=== PATIENT | female | born 1990 | race Caucasian/White ===

== ENCOUNTER 2017-07-03 22:05 | Emergency (ER) | payer OTHER ==
[2017-07-03 22:13] VITALS: BP 104/68; PULSE 90; RESP 20; TEMP 98.5
[2017-07-03] MEDS ORDERED: BUPIVACAINE (PF) 0.5% 30 ML VIAL SQ STA (22:25)
[2017-07-03] MEDS ORDERED: CLINDAMYCIN 150 MG CAP PO STA (22:26)
--- NOTE | 2017-07-03 22:53 | ED ---
ENT HPI - General Chief complaint: Dental/Oral Stated complaint: Dental pain Time Seen by Provider: 07/03/17 22:20 Source: patient, RN notes reviewed Mode of arrival: ambulatory Limitations: no limitations - History of Present Illness MD complaint: tooth pain - Related Data Previous Rx's Medication Instructions Recorded Lurasidone [Latuda] 40 mg PO DAILY #30 tab 08/01/16 buPROPion XL [Wellbutrin XL] 300 mg PO DAILY #30 tab.er.24h 08/01/16 busPIRone HCl [Buspar] 10 mg PO TID #90 tab 08/01/16 traZODone HCL [Desyrel] 50 mg PO HS PRN #30 tab 08/01/16 Acetaminophen-Codeine 300-30mg 1 each PO Q4H PRN #20 tablet 07/03/17 [Tylenol w/codeine #3] Clindamycin [Cleocin] 150 mg PO Q6H #40 capsule 07/03/17 Allergies Allergy/AdvReac Type Severity Reaction Status Date / Time sulfamethoxazole Allergy Rash/Hives Verified 07/03/17 22:13 [From Bactrim] trimethoprim [From Bactrim] Allergy Rash/Hives Verified 07/03/17 22:13 Review of Systems ROS Statement: Those systems with pertinent positive or pertinent negative responses have been documented in the HPI. ROS Other: All systems not noted in ROS Statement are negative. Past Medical History Past Medical History: No Reported History Additional Past Medical History / Comment(s): pcos History of Any Multi-Drug Resistant Organisms: None Reported Past Surgical History: No Surgical Hx Reported Past Anesthesia/Blood Transfusion Reactions: No Reported Reaction Past Psychological History: Anxiety, Depression Smoking Status: Never smoker Past Alcohol Use History: None Reported Past Drug Use History: None Reported - Past Family History Father Additional Family Medical History / Comment(s): Father is alive at age 49 with no major medical problems. Mother Family Medical History: COPD, CVA/TIA Additional Family Medical History / Comment(s): Mother is alive at age 50 with history of CVA, COPD. Sister(s) Additional Family Medical History / Comment(s): Patient has 4 sisters and 3 brothers with no major medical problems. General Exam - General Exam Comments Initial Comments: Well-developed, well-nourished 26-year-old female in minimal distress Limitations: no limitations General appearance: alert, in no apparent distress Head exam: Present: atraumatic, normocephalic, normal inspection Eye exam: Present: normal appearance, EOMI ENT exam: Present: mucous membranes moist, TM's normal bilaterally, normal external ear exam, other (Patient has erythema adjacent to tooth #29 on the right. This is consistent with early abscess. There is no pustular head. No current drainage. Airway patent. No tonsillar adenopathy or exudate.) Neck exam: Present: normal inspection. Absent: tenderness, meningismus, lymphadenopathy Respiratory exam: Present: normal lung sounds bilaterally. Absent: respiratory distress, wheezes, rales, rhonchi, stridor Cardiovascular Exam: Present: regular rate, normal rhythm, normal heart sounds. Absent: systolic murmur, diastolic murmur, rubs, gallop, clicks Neurological exam: Present: alert, oriented X3, CN II-XII intact Psychiatric exam: Present: normal affect, normal mood Skin exam: Present: warm, dry, intact, normal color. Absent: rash Course Vital Signs 07/03/17 22:12 Temperature 98.5 F Pulse Rate 90 Respiratory 20 Rate Blood Pressure 104/68 O2 Sat by Pulse 98 Oximetry Procedures - Nerve Block Consent Obtained: verbal consent Time Out Performed: No Local Anesthetic Used: Marcaine 0.5% Amount of anesthesia used: 1 Side: right Intraoral Nerve Block: inferior alveolar Procedure Successful: Yes Complications: none Patient Tolerated Procedure: well Additional Comments: Incision and drainage of dental abscess was also performed using an 18-gauge needle. However, no purulent drainage was aspirated. Patient tolerated well Medical Decision Making - Medical Decision Making Patient was counseled on signs and symptoms of worsening infection. Counseled on follow-up. Patient counseled on the importance of antibiotic regimen.Return to the ER at once if the symptoms worsen or problems or difficulties arise. - Differential Diagnosis Cellulitis versus early dental abscess Disposition Clinical Impression: Dental infection Disposition: HOME SELF-CARE Condition: Good Additional Instructions: Follow-up with the community dental clinic at [address] [place] [id number]. The phone number is [phone] (existing clients), ( new clients). The first consultation is $50 which includes x-rays. Usually costs 30% less than private dentist for subsequent visits. Return to the ER at once if the symptoms worsen or problems or difficulties arise. Prescriptions: Acetaminophen-Codeine 300-30mg [Tylenol w/codeine #3] 1 each PO Q4H PRN #20 tablet PRN Reason: Pain Clindamycin [Cleocin] 150 mg PO Q6H #40 capsule Referrals: Jennifer Roman MD [Primary Care Provider] - 1-2 days Time of Disposition: 22:56
[2017-07-03] MEDS ORDERED: Acetaminophen-Codeine 300-30mg TAB PO STA (23:19)
== END 2017-07-03 23:27 | disposition home or self-care (01) ==
LOC: EC 22:05
DX: K04.7 Periapical abscess without sinus (principal); Z88.2 Allergy status to sulfonamides
CPT/HCPCS: 41800; 81025; 99283

== ENCOUNTER 2017-11-25 14:42 | Emergency (ER) | payer OTHER ==
[2017-11-25 14:45] VITALS: BP 102/64; PULSE 78; RESP 18; TEMP 97.7
--- NOTE | 2017-11-25 15:06 | ED ---
General Adult HPI - General Chief complaint: Dental/Oral Stated complaint: dental pain Time Seen by Provider: 11/25/17 14:46 Source: patient, RN notes reviewed Mode of arrival: ambulatory Limitations: no limitations - History of Present Illness Initial comments: 26 yo female presents to the ER with cc of left sided dental pain. Patient states that this pain developed over the last 2 days or so. She has a history of bad teeth she states she called the dental clinic but they're unable. Patient denies any difficulty opening closing mouth or any pain radiating to neck patient has any fever chills. She states she did not take anything for pain prior to arrival. She states that she now some swelling to the left side the face. Patient denies any other symptoms at this time. They're concerned due to the continued pains without that should be evaluated. Patient denies any recent fever, chills, shortness of breath, chest pain, back pain, abdominal pain , nausea vomiting, numbness or tingling, dysuria or hematuria, constipation or diarrhea, headaches or visual changes, or any other current symptoms. - Related Data Previous Rx's Medication Instructions Recorded Lurasidone [Latuda] 40 mg PO DAILY #30 tab 08/01/16 buPROPion XL [Wellbutrin XL] 300 mg PO DAILY #30 tab.er.24h 08/01/16 busPIRone HCl [Buspar] 10 mg PO TID #90 tab 08/01/16 traZODone HCL [Desyrel] 50 mg PO HS PRN #30 tab 08/01/16 Acetaminophen-Codeine 300-30mg 1 each PO Q4H PRN #20 tablet 07/03/17 [Tylenol w/codeine #3] Clindamycin [Cleocin] 150 mg PO Q6H #40 capsule 07/03/17 Ibuprofen [Motrin] 800 mg PO Q6H #20 tab 11/25/17 Penicillin V Potassium [Pen Vee K] 500 mg PO QID 7 Days tablet 11/25/17 Allergies Allergy/AdvReac Type Severity Reaction Status Date / Time sulfamethoxazole Allergy Rash/Hives Verified 11/25/17 14:45 [From Bactrim] trimethoprim [From Bactrim] Allergy Rash/Hives Verified 11/25/17 14:45 Review of Systems ROS Statement: Those systems with pertinent positive or pertinent negative responses have been documented in the HPI. ROS Other: All systems not noted in ROS Statement are negative. Past Medical History Past Medical History: No Reported History Additional Past Medical History / Comment(s): pcos History of Any Multi-Drug Resistant Organisms: None Reported Past Surgical History: No Surgical Hx Reported Past Anesthesia/Blood Transfusion Reactions: No Reported Reaction Past Psychological History: Anxiety, Depression Smoking Status: Never smoker Past Alcohol Use History: None Reported Past Drug Use History: None Reported - Past Family History Father Additional Family Medical History / Comment(s): Father is alive at age 49 with no major medical problems. Mother Family Medical History: COPD, CVA/TIA Additional Family Medical History / Comment(s): Mother is alive at age 50 with history of CVA, COPD. Sister(s) Additional Family Medical History / Comment(s): Patient has 4 sisters and 3 brothers with no major medical problems. General Exam Limitations: no limitations Head exam: Present: atraumatic, normocephalic, normal inspection Eye exam: Present: normal appearance, PERRL, EOMI. Absent: scleral icterus, conjunctival injection, periorbital swelling ENT exam: Present: mucous membranes moist, other (Dental carrier Tooth #17. No abscess noted.) Neck exam: Present: normal inspection. Absent: tenderness, meningismus, lymphadenopathy Respiratory exam: Present: normal lung sounds bilaterally. Absent: respiratory distress, wheezes, rales, rhonchi, stridor Cardiovascular Exam: Present: regular rate, normal rhythm, normal heart sounds. Absent: systolic murmur, diastolic murmur, rubs, gallop, clicks Neurological exam: Present: alert, oriented X3 Psychiatric exam: Present: normal affect, normal mood Skin exam: Present: warm, dry, intact, normal color. Absent: rash Course Vital Signs 11/25/17 14:43 Temperature 97.7 F Pulse Rate 78 Respiratory 18 Rate Blood Pressure 102/64 O2 Sat by Pulse 98 Oximetry Medical Decision Making - Medical Decision Making 26 shows female presents for left-sided dental pain. This time we discussed follow-up with the dentist. We did discuss using the amount of pain medication as prescribed. We discussed return parameters all questions. Patient stated they agree with management this plan. All questions have been answered. They will be discharged home. Disposition Clinical Impression: Dental caries Disposition: HOME SELF-CARE Condition: Stable Instructions: Dental Caries (ED) Additional Instructions: Please use medication as discussed. Please follow up with family doctor if symptoms have not improved over the next two days. Please return to the emergency room if your symptoms increase or worsen or for any other concerns. [facility] [address] [place] [address] [phone] (existing clients only) For new clients: [phone] 1st consult: $50 (includes Xrays) Usually 30% less then private dentist for visits after. [employer] [facility] [employer] Have to pay $50 for Xrays anmd rest is covered. [phone] Prescriptions: Ibuprofen [Motrin] 800 mg PO Q6H #20 tab Penicillin V Potassium [Pen Vee K] 500 mg PO QID 7 Days tablet Referrals: Jennifer Roman MD [Primary Care Provider] - 1-2 days Time of Disposition: 15:06
== END 2017-11-25 15:12 | disposition home or self-care (01) ==
LOC: EC 14:42
DX: K02.9 Dental caries, unspecified (principal); Z88.2 Allergy status to sulfonamides
CPT/HCPCS: 99282

== ENCOUNTER 2018-04-30 13:01 | Emergency (ER) | payer OTHER ==
[2018-04-30 13:09] VITALS: RESP 18
[2018-04-30] MEDS ORDERED: SODIUM CHLORIDE 0.9% 500 ML IV ONE (14:35)
--- NOTE | 2018-04-30 14:37 | ED ---
General Adult HPI - General Chief complaint: Vaginal Bleeding Stated complaint: HEAVY BLEEDING Time Seen by Provider: 04/30/18 13:05 Source: patient, RN notes reviewed Mode of arrival: ambulatory Limitations: no limitations - History of Present Illness Initial comments: This is a 27-year-old female presents emergency Department complaining of vaginal bleeding. Patient states started today. Patient states it's extremely heavy. Patient states she has had heavy menstrual cycles in the past but this is more so than any other menstrual cycle she has ever had. Patient does complain of some lower abdominal cramping but no specific site of pain. Patient states she has not been sexually active because her is in [facility]. Patient denies any fever chills. Patient denies any back pain. Patient denies dysuria hematuria urinary frequency. Patient denies any shortness of breath or chest pain. Patient denies any lightheadedness or dizziness. - Related Data Home Medications Medication Instructions Recorded Confirmed ARIPiprazole [Abilify] 5 mg PO HS 04/30/18 04/30/18 OXcarbazepine [Trileptal] 150 mg PO HS 04/30/18 04/30/18 Venlafaxine HCl ER [Effexor XR] 150 mg PO DAILY 04/30/18 04/30/18 Allergies Allergy/AdvReac Type Severity Reaction Status Date / Time sulfamethoxazole Allergy Rash/Hives Verified 04/30/18 14:29 [From Bactrim] trimethoprim [From Bactrim] Allergy Rash/Hives Verified 04/30/18 14:29 Review of Systems ROS Statement: Those systems with pertinent positive or pertinent negative responses have been documented in the HPI. ROS Other: All systems not noted in ROS Statement are negative. Past Medical History Past Medical History: No Reported History Additional Past Medical History / Comment(s): pcos History of Any Multi-Drug Resistant Organisms: None Reported Past Surgical History: No Surgical Hx Reported Past Anesthesia/Blood Transfusion Reactions: No Reported Reaction Past Psychological History: Anxiety, Bipolar, Depression Smoking Status: Never smoker Past Alcohol Use History: None Reported Past Drug Use History: None Reported - Past Family History Father Additional Family Medical History / Comment(s): Father is alive at age 49 with no major medical problems. Mother Family Medical History: COPD, CVA/TIA Additional Family Medical History / Comment(s): Mother is alive at age 50 with history of CVA, COPD. Sister(s) Additional Family Medical History / Comment(s): Patient has 4 sisters and 3 brothers with no major medical problems. General Exam - General Exam Comments Initial Comments: GENERAL: Patient is well-developed and well-nourished. Patient is nontoxic and well- hydrated and is in mild distress. ENT: Neck is soft and supple. No significant lymphadenopathy is noted. Oropharynx is clear. Moist mucous membranes. Neck has full range of motion without eliciting any pain. EYES: The sclera were anicteric and conjunctiva were pink and moist. Extraocular movements were intact and pupils were equal round and reactive to light. Eyelids were unremarkable. PULMONARY: Unlabored respirations. Good breath sounds bilaterally. No audible rales rhonchi or wheezing was noted. CARDIOVASCULAR: There is a regular rate and rhythm without any murmurs gallops or rubs. ABDOMEN: Soft and nontender with normal bowel sounds. No palpable organomegaly was noted. There is no palpable pulsatile mass. GENITALIA: On speculum exam patient was having some bleeding but was not excessive at this time. SKIN: Skin is clear with no lesions or rashes and otherwise unremarkable. NEUROLOGIC: Patient is alert and oriented x3. Cranial nerves II through XII are grossly intact. Motor and sensory are also intact. Normal speech, volume and content. Symmetrical smile. MUSCULOSKELETAL: Normal extremities with adequate strength and full range of motion. LYMPHATICS: No significant lymphadenopathy is noted PSYCHIATRIC: Normal psychiatric evaluation. Normal interpersonal interactions appears functionally intact in deals appropriately with others. No signs of depression. No signs of anxiety. Limitations: no limitations Course Vital Signs 04/30/18 04/30/18 13:07 14:30 Temperature 98.1 F Pulse Rate 82 Pulse Rate [ 72 Sitting] Pulse Rate [ 87 Standing] Pulse Rate [ 69 Supine] Respiratory 18 Rate Blood Pressure 105/75 Blood Pressure 114/74 [Sitting] Blood Pressure 114/78 [Standing] Blood Pressure 109/67 [Supine] O2 Sat by Pulse 100 Oximetry Medical Decision Making - Medical Decision Making Patient stated the vaginal bleeding seemed to significantly reduce while in the emergency department. Patient was not lightheaded not short of breath and not orthostatic. - Lab Data Result diagrams: 04/30/18 14:26 04/30/18 14:26 Lab Results 04/30/18 04/30/18 04/30/18 Range/Units 14:26 14:26 14:26 WBC 12.1 H (3.8-10.6) k/uL RBC 4.08 (3.80-5.40) m/uL Hgb 11.0 L (11.4-16.0) gm/dL Hct 33.8 L (34.0-46.0) % MCV 83.0 (80.0-100.0) fL MCH 27.1 (25.0-35.0) pg MCHC 32.6 (31.0-37.0) g/dL RDW 14.1 (11.5-15.5) % Plt Count 331 (150-450) k/uL Neutrophils % 73 % Lymphocytes % 18 % Monocytes % 6 % Eosinophils % 2 % Basophils % 0 % Neutrophils # 8.8 H (1.3-7.7) k/uL Lymphocytes # 2.2 (1.0-4.8) k/uL Monocytes # 0.7 (0-1.0) k/uL Eosinophils # 0.2 (0-0.7) k/uL Basophils # 0.1 (0-0.2) k/uL PT 10.3 (9.0-12.0) sec INR 1.1 (<1.2) APTT 23.1 (22.0-30.0) sec Sodium 139 (137-145) mmol/L Potassium 4.0 (3.5-5.1) mmol/L Chloride 108 H (98-107) mmol/L Carbon Dioxide 24 (22-30) mmol/L Anion Gap 7 mmol/L BUN 10 (7-17) mg/dL Creatinine 0.66 (0.52-1.04) mg/dL Est GFR (CKD-EPI)AfAm >90 (>60 ml/min/1.73 sqM) Est GFR (CKD-EPI)NonAf >90 (>60 ml/min/1.73 sqM) Glucose 76 (74-99) mg/dL Calcium 8.5 (8.4-10.2) mg/dL Total Bilirubin 0.4 (0.2-1.3) mg/dL AST 23 (14-36) U/L ALT 30 (9-52) U/L Alkaline Phosphatase 53 (38-126) U/L Total Protein 6.0 L (6.3-8.2) g/dL Albumin 3.8 (3.5-5.0) g/dL Urine HCG, Qual (Not Detectd) 04/30/18 Range/Units 14:47 WBC (3.8-10.6) k/uL RBC (3.80-5.40) m/uL Hgb (11.4-16.0) gm/dL Hct (34.0-46.0) % MCV (80.0-100.0) fL MCH (25.0-35.0) pg MCHC (31.0-37.0) g/dL RDW (11.5-15.5) % Plt Count (150-450) k/uL Neutrophils % % Lymphocytes % % Monocytes % % Eosinophils % % Basophils % % Neutrophils # (1.3-7.7) k/uL Lymphocytes # (1.0-4.8) k/uL Monocytes # (0-1.0) k/uL Eosinophils # (0-0.7) k/uL Basophils # (0-0.2) k/uL PT (9.0-12.0) sec INR (<1.2) APTT (22.0-30.0) sec Sodium (137-145) mmol/L Potassium (3.5-5.1) mmol/L Chloride (98-107) mmol/L Carbon Dioxide (22-30) mmol/L Anion Gap mmol/L BUN (7-17) mg/dL Creatinine (0.52-1.04) mg/dL Est GFR (CKD-EPI)AfAm (>60 ml/min/1.73 sqM) Est GFR (CKD-EPI)NonAf (>60 ml/min/1.73 sqM) Glucose (74-99) mg/dL Calcium (8.4-10.2) mg/dL Total Bilirubin (0.2-1.3) mg/dL AST (14-36) U/L ALT (9-52) U/L Alkaline Phosphatase (38-126) U/L Total Protein (6.3-8.2) g/dL Albumin (3.5-5.0) g/dL Urine HCG, Qual Not Detected (Not Detectd) Disposition Clinical Impression: Dysfunctional uterine bleeding Disposition: HOME SELF-CARE Condition: Good Instructions: Dysfunctional Uterine Bleeding (ED) Is patient prescribed a controlled substance at d/c from ED?: No Referrals: Jennifer Roman MD [Primary Care Provider] - 1-2 days Time of Disposition: 15:59
[2018-04-30 14:45] LABS: Basophils # (A) 0.1 k/uL (0-0.2); Basophils % (A) 0 %; Eosinophils # (A) 0.2 k/uL (0-0.7); Eosinophils % (A) 2 %; HCT 33.8 % (34.0-46.0); Lymphocytes # (A) 2.2 k/uL (1.0-4.8); Lymphocytes % (A) 18 %; MCH 27.1 pg (25.0-35.0); MCHC 32.6 g/dL (31.0-37.0); Mean Platelet Volume 6.6; Monocytes # (A) 0.7 k/uL (0-1.0); Monocytes % (A) 6 %; Neutrophils # (A) 8.8 k/uL (1.3-7.7); Neutrophils % (A) 73 %; Platelet Count 331 k/uL (150-450); RBC 4.08 m/uL (3.80-5.40); RDW 14.1 % (11.5-15.5); WBC 12.1 k/uL (3.8-10.6)
[2018-04-30 14:50] LABS: INR 1.1 (<1.2); Partial Thromboplastin Time 23.1 sec (22.0-30.0); Prothrombin Time 10.3 sec (9.0-12.0)
[2018-04-30 14:55] LABS: ALT 30 U/L (9-52); AST 23 U/L (14-36); Albumin 3.8 g/dL (3.5-5.0); Alkaline Phosphatase 53 U/L (38-126); Anion Gap 7 mmol/L; Blood Urea Nitrogen 10 mg/dL (7-17); Calcium 8.5 mg/dL (8.4-10.2); Carbon Dioxide 24 mmol/L (22-30); Chloride 108 mmol/L (98-107); Glucose 76 mg/dL (74-99); Sodium 139 mmol/L (137-145); Total Bilirubin 0.4 mg/dL (0.2-1.3)
[2018-04-30 16:17] VITALS: BP 114/69; PULSE 88; TEMP 97.9
== END 2018-04-30 16:17 | disposition home or self-care (01) ==
LOC: EC 13:01
DX: N93.8 Other specified abnormal uterine and vaginal bleeding (principal); F41.9 Anxiety disorder, unspecified; F32.9 Major depressive disorder, single episode, unspecified; Z79.899 Other long term (current) drug therapy; Z88.2 Allergy status to sulfonamides
CPT/HCPCS: 36415; 80053; 81025; 85025; 85610; 85730; 96360; 99284